=== PATIENT | female | born 1955 | race Caucasian/White ===

== ENCOUNTER → 2024-03-28 13:02 | Outpatient (REF) | payer MEDICARE, OTHER, SELFPAY | LOC: HWWDC 13:02 | PROVIDERS: ATTENDING PHYSICIAN Physician Assistant | DX: Z12.31 Encounter for screening mammogram for malignant neoplasm of breast (principal) | CPT/HCPCS: 77063; 77067 ==

== ENCOUNTER → 2025-08-28 09:12 | Outpatient (REF) | payer MEDICARE, OTHER, SELFPAY | LOC: HWRAD 09:12 | PROVIDERS: ATTENDING PHYSICIAN Internal Medicine; FAMILY PHYSICIAN Physician Assistant | DX: M81.0 Age-related osteoporosis without current pathological fracture (principal) | CPT/HCPCS: 77080 ==

== ENCOUNTER → 2025-10-09 12:29 | Outpatient (REF) | payer MEDICARE, OTHER, SELFPAY | LOC: HWRAD 12:29 | PROVIDERS: ATTENDING PHYSICIAN Physician Assistant | DX: R22.1 Localized swelling, mass and lump, neck (principal) | CPT/HCPCS: 76536 ==

== ENCOUNTER → 2025-10-17 18:09 | Outpatient (REF) | payer MEDICARE, OTHER, SELFPAY | LOC: WDC 18:09 | PROVIDERS: ATTENDING PHYSICIAN Physician Assistant | DX: Z12.39 Encounter for other screening for malignant neoplasm of breast (principal); Z12.31 Encounter for screening mammogram for malignant neoplasm of breast | CPT/HCPCS: 77063; 77067 ==

== ENCOUNTER → 2025-10-25 09:31 | Outpatient (REF) | payer MEDICARE, OTHER, SELFPAY ==
[2025-10-25 09:52] VITALS: BP 112/69; BP_SYST 61
== END ==
LOC: RADI 09:31
PROVIDERS: ATTENDING PHYSICIAN Physician Assistant
DX: E04.2 Nontoxic multinodular goiter (principal)
CPT/HCPCS: 10005; 10006; 88173